=== PATIENT | male | born 1995 | race Two or more races ===

== ENCOUNTER 2024-01-21 08:06 | Emergency (ER) | payer OTHER, SELFPAY ==
--- NOTE | ~2024-01-21 | CT_ITS ---
EXAMINATION: CT ABDOMEN AND PELVIS WITHOUT CONTRAST CLINICAL INFORMATION: Left flank pain going into left testicle COMPARISON: None available. TECHNIQUE: Multidetector volumetric imaging was performed from the superior aspect of the liver through the pubic symphysis. Sagittal and coronal reformatted images were obtained on the technologist's workstation. This CT examination was performed using dose optimization techniques as appropriate, variously including the following: *Automated exposure control *Adjustment of mA and/or kV according to patient size (this includes techniques or standardized protocols for targeted exams where dose is matched to indication/reason for exam; i.e. extremities or head) *Use of iterative reconstruction technique DLP: 660 mGy-cm FINDINGS: LUNG BASES: No pneumothorax. No large pleural effusion. LIVER, GALLBLADDER, AND BILIARY TREE: Hepatic dome incompletely analyzed/not included in [id number]. The liver is normal in size, shape, and attenuation. No focal hepatic lesion or biliary ductal dilatation is present. The gallbladder is unremarkable with no evidence of radiopaque gallstones, gallbladder wall thickening, or obvious pericholecystic inflammatory changes. PANCREAS: Unremarkable. SPLEEN: Unremarkable. ADRENAL GLANDS: Unremarkable. KIDNEYS AND URETERS: Mild left-sided hydroureteronephrosis secondary to a 4 mm calculus along the left distal ureter just proximal to the ureterovesicular junction with slight periureteral stranding. No right-sided nephrolithiasis or hydronephrosis. BLADDER: Unremarkable. GASTROINTESTINAL TRACT: The small and large bowel are unremarkable. The appendix is unremarkable. ABDOMINAL WALL: Small fat filled umbilical hernia. LYMPH NODES: No enlarged lymph nodes per size criteria. VASCULAR: Aorta is nonaneurysmal. PELVIC VISCERA: Prostate measures 3.8 cm. OSSEOUS STRUCTURES: Unremarkable. CT/CT abdomen pelvis wo IV con IMPRESSION: Mild left-sided hydroureteronephrosis secondary to a 4 mm calculus along the left distal ureter just proximal to the ureterovesicular junction with slight periureteral stranding.
[2024-01-21 08:16] VITALS: BP 155/100; PULSE 55; RESP 18; TEMP 37; O2SAT 100; BMI 25.4
--- NOTE | 2024-01-21 08:33 | ED_ITS ---
HPI - Male Genitourinary General Chief complaint: Urogenital-Male Stated complaint: testicle pain / vomiting Time Seen by Provider: 01/21/24 08:33 Source: patient Mode of arrival: ambulatory Limitations: language barrier History of Present Illness ED Provider: Dr. Babb HPI Narrative: patient with sudden onset of left testicular pain with diaphoresis and vomiting, patient now feels his pain going into the back Complaint: testicle pain Onset (ago): hour(s) Duration: constant Location: left testicle Severity: severe Related Data Previous Rx's ?Medication ?Instructions ?Recorded cephalexin 500 mg capsule 500 mg PO Q6H 10 days #40 caps 01/21/24 naproxen 500 mg tablet (Naprosyn) 500 mg PO BID #20 tabs 01/21/24 tamsulosin 0.4 mg capsule (Flomax) 0.4 mg PO BEDTIME #30 caps 01/21/24 Allergies Allergy/AdvReac Type Severity Reaction Status Date / Time No Known Allergies Allergy Verified 01/21/24 08:34 Review of Systems 2 Review of Systems: Yes all other systems are reviewed and are negative Neurologic: Denies Sensory deficit (Neuro) [facility] Past Medical History Medical History No known health problems No known health problems Social History Social History Alcohol intake: current Alcohol intake frequency: a few times a week Smoked in Last 30 Days: Yes Use of substances other than those prescribed or required for medical reasons: No Any prior treatment program specific to substance use: No Advance Directives: No Advance Directives Information Provided: No Physical Exam 2 Vital Signs: Vital Signs: Last Vital Signs Temp 98.5 F 01/21/24 14:36 Pulse 56 01/21/24 14:36 Resp 16 01/21/24 14:36 BP 126/65 01/21/24 14:36 Pulse Ox 100 01/21/24 14:36 O2 Del Method Room Air 01/21/24 14:36 BMI result Body Mass Index 25.4 Const: Other: patient in pain, pale and diaphoretic Nutritional Appearance: average body habitus Orientation/consciousness: oriented to person and patient oriented x3 Limitations: no limitations HEENT: Head: Yes normal to inspection Ears: external ears normal General nose exam: Normal external nose present Mouth: Normal oral and palatal mucosa present and oropharynx normal Throat: Yes posterior oropharynx normal Eyes: General: appearance normal, both eyes and all related structures Neck: Other: supple Neck: Yes normal visual inspection Chest: Chest palpation & inspection: normal inspection of the chest Resp: Auscultation: clear to auscultation bilaterally Cardio: Jugular venous distension: no JVD Rate: regular rate Rhythm: r egular rhythm Heart sounds: S1 normal heart sound present and S2 normal heart sound present GI: Inspection: Yes normal to inspection Palpation (GI): Soft to palpation, nontender and No hepatosplenomegaly present Auscultation: normal bowel sounds : Other: Left CVAT, normal non swollen testicle, no redness, normal lie no pain Skin: General skin exam: no rashes or lesions noted Neuro: General: oriented to person and patient oriented x3 Cranial nerves: Yes CN's II-XII intact bilaterally Motor exam (neuro): 5/5 motor strength present throughout Sensory Exam: No Sensory deficit (Neuro) Extrem: General: Yes normal to inspection Psych: Appearance: grossly normal Course Reevaluation(s) Reevaluation #1: Patient feeling better will dc home, discussed with Dr. Jiménez as patient also has an infection Time: 15:16 Reevaluation #2: I spent 40 minutes of critical care, with interventions, assessments, speaking to patient, consultants, and family. Time: 15:16 Medications Administered Discontinued Medications Generic Name Dose Route Start Last Admin Trade Name Freq PRN Reason Stop Dose Admin Sodium Chloride 1,000 mls @ 999 mls/hr 01/21/24 08:45 01/21/24 10:31 Ns IVCONT 01/21/24 10:45 Infused .Q1H1M RENZO Infusion Ceftriaxone Sodium 1 gm/ 50 mls @ 100 mls/hr 01/21/24 11:45 01/21/24 12:41 Sodium Chloride IV 01/21/24 12:14 Infused ONCE ONE Infusion Ketorolac Tromethamine 30 mg 01/21/24 08:34 01/21/24 09:14 Ketorolac Tromethamine 30 Mg/Ml Vial IVPUSH 01/21/24 08:35 30 mg ONCE ONE Administration Ondansetron HCl 4 mg 01/21/24 08:34 01/21/24 09:14 Ondansetron Hcl 4 Mg/2 Ml Vial IVPUSH 01/21/24 08:35 4 mg ONCE ONE Administration Medical Decision Making Differential Diagnosis Differential Diagnoses: The differential diagnosis associated with the presentation includes (testicular torsion, renal colic, pyelonephritis, UTI) Admission/Observation Consideration of admission/observation: Escalation of care including admission/observation considered (upon arrival patient considered for admission) Consult Healthcare Provider Management of the patient was discussed with: W[employer] Sorter (Dr. Jiménez [facility]) Lab Data 01/21/24 12:07 01/21/24 12:07 Labs: Lab Results 01/21/24 01/21/24 Range/Units 10:37 12:07 WBC 13.0 H (4.8-10.8) X10*3/uL RBC 4.63 (4.60-5.80) X10*6/uL Hgb 14.6 (14.0-18.0) g/dl Hct 42.1 (42.0-52.0) % MCV 90.9 (80.0-98.0) fL MCH 31.5 (27.0-33.0) pg MCHC 34.7 (31.0-36.0) g/dl RDW 12.7 (11.0-16.0) % Plt Count 267 (160-400) X10*3/uL MPV 9.4 (9.4-12.4) fL Immature Gran % (Auto) 0.4 (0.0-0.4) % Neut % (Auto) 88.7 H (45-73) % Lymph % (Auto) 8.1 L (20-40) % [place] % (Auto) 2.5 (2-11) % Eos % (Auto) 0.0 (0-4) % Baso % (Auto) 0.3 (0-2) % Lymph # (Auto) 1.1 L (1.2-4.9) X10*3/uL [place] # (Auto) 0.3 (0.1-1.2) X10*3/uL Eos # (Auto) 0.0 (0.0-0.4) X10*3/uL Baso # (Auto) 0.0 (0.0-0.2) X10*3/uL Abs Immat Gran (auto) 0.05 H (0.00-0.03) X10*3/uL Absolute Neuts (auto) 11.6 H (2.0-8.3) x10*3/uL Absolute Nucleated RBC 0.000 (0.0-0.012) X10*3/uL Nucleated RBC % (auto) 0.0 (0.0-0.2) /100WBC Sodium 142 (135-145) mmol/L Potassium 4.5 (3.3-5.1) mmol/L Chloride 113 H (96-108) mmol/L Carbon Dioxide 25 (22-29) mmol/L Anion Gap 9 L (12-20) BUN 11 (9-16) mg/dL Creatinine 1.00 (0.5-1.4) mg/dL Estim Creat Clear Calc 111.9 Estimated GFR > 60 Random Glucose 103 (60-115) mg/dL Calcium 9.2 (8.4-10.2) mg/dL Urine Color Brown A Urine Appearance Turbid Urine pH 5.5 (5.0-9.0) Ur Specific Bel[place] >= 1.030 H (1.005-1.025) Urine Protein 100 (2+) H (Neg-Trace) mg/dL Urine Glucose (UA) Negative (Negative) mg/dL Urine Ketones Negative (Negative) mg/dL Urine Blood Large (3+) H (Negative) Urine Nitrite Positive H (Negative) Ur Leukocyte Esterase Small (1+) H (Negative) Urine RBC >20 H (0-2) /HPF Urine WBC 21-50 H (0-5) /HPF Ur Squamous Epith Cells 0-2 (0-2) /HPF Calcium Oxalate Crystal Present Urine Bacteria None Seen (None Seen) Hyaline Casts 3-5 (0-2) /LPF Independent Interpretation I performed an independent interpretation of an: CT Scan (abd: hydro on left with UVJ stone) Radiology Impression Discussion of test interpretation with radiology: I have reviewed the radiologist's reading. Discharge Plan Discharge Clinical Impression: Renal colic, Urinary tract infection, Hydronephrosis Patient Disposition: Home, Self-Care Instructions: Urinary Tract Infection in Men (ED), Renal Colic (ED), Hydronephrosis (ED) Prescriptions: New naproxen [Naprosyn] 500 mg tablet 500 mg PO BID Qty: 20 0RF tamsulosin [Flomax] 0.4 mg capsule 0.4 mg PO BEDTIME Qty: 30 0RF cephalexin 500 mg capsule 500 mg PO Q6H 10 Days Qty: 40 0RF Referrals: Elijah Jiménez MD [Physician] - 5 days Print Language: Indonesian
[2024-01-21] MEDS: 0.9 % Sodium Chloride 1,000 ML 999 ML IVCONT ×2 (09:14→09:16)
[2024-01-21] MEDS: Ketorolac Tromethamine 30 MG/ML VIAL IVPUSH (09:14)
[2024-01-21] MEDS: ondansetron HCL 4 MG/2 ML VIAL IVPUSH (09:14)
--- NOTE | 2024-01-21 09:17 | PC.NURSE ---
Pt brought to [facility] for treatment, assumed care of pt at this time. A&Ox3 skin ple warm and dry. Endorsing left testicular pain, and lower abd pain beginning around 0600 today. N/V, denies diarrhea. Denies urinary symptoms. Denies fever. IV access obtained, medicated per MAR, awaiting imaging, aware of plan of care.
[2024-01-21 11:03] LABS: Appearance Urine Turbid; Glucose Urine UA Negative (Negative); Leukocyte Esterase Urine Small (1+) (Negative); Nitrite Urine Positive (Negative); PH 5.5 (5.0-9.0); Specific Gravity - Urine >= 1.030 (1.005-1.025); UMIC TRIGGER UACC YES; Urine Blood Large (3+) (Negative); Urine Ketones Negative (Negative); Urine Protein 100 (2+) mg/dL (Neg-Trace)
[2024-01-21 11:04] LABS: Color Urine Brown
[2024-01-21 11:05] LABS: Bacteria Urine None Seen (None Seen); Calcium Oxalate Crystals Urine Present; RBC Urine >20 /HPF (0-2); Squamous Epithelial Cell Urine 0-2 /HPF (0-2); UACC Culture Trigger YES; WBC Urine 21-50 /HPF (0-5)
[2024-01-21 12:03] VITALS: BP 109/59; PULSE 56; RESP 16; TEMP 36.6; O2SAT 100
[2024-01-21] MEDS: cefTRIAXone sodium 1 GM in 0.9 % Sodium Chloride 50 ML IV (12:09)
[2024-01-21 12:14] LABS: MANUAL DIFF FLAG NO
[2024-01-21 12:17] LABS: Basophils Percent Auto 0.3 % (0-2); Hematocrit 42.1 % (42.0-52.0); Hemoglobin 14.6 g/dl (14.0-18.0); Imm Gran Abs Auto 0.05 X10*3/uL (0.00-0.03); Imm Gran Pct Auto 0.4 % (0.0-0.4); Lymphocytes Absolute Auto 1.1 X10*3/uL (1.2-4.9); Lymphocytes Percent Auto 8.1 % (20-40); Mean Corpuscular HGB Conc 34.7 g/dl (31.0-36.0); Mean Corpuscular Hemoglobin 31.5 pg (27.0-33.0); Mean Corpuscular Volume 90.9 fL (80.0-98.0); Mean Platelet Volume 9.4 fL (9.4-12.4); Monocytes Absolute Auto 0.3 X10*3/uL (0.1-1.2); Monocytes Percent Auto 2.5 % (2-11); Neutrophils Absolute Auto 11.6 x10*3/uL (2.0-8.3); Neutrophils Percent Auto 88.7 % (45-73); Platelet Count 267 X10*3/uL (160-400); Red Blood Count 4.63 X10*6/uL (4.60-5.80); Red Cell Distribution Width 12.7 % (11.0-16.0)
[2024-01-21 12:27] LABS: Anion Gap 9 (12-20); Blood Urea Nitrogen 11 mg/dL (9-16); Calcium 9.2 mg/dL (8.4-10.2); Carbon Dioxide 25 mmol/L (22-29); Chloride 113 mmol/L (96-108); Creatinine Clr Calc Pharmacy 111.9; Estimated Glomerular Filt Rate > 60; Glucose Random 103 mg/dL (60-115); Potassium 4.5 mmol/L (3.3-5.1); Sodium 142 mmol/L (135-145)
[2024-01-21 14:36] VITALS: BP 126/65; PULSE 56; RESP 16; TEMP 36.9; O2SAT 100
[2024-01-21 17:09] VITALS: BP 125/65; PULSE 65; RESP 16; TEMP 36.9; O2SAT 100
== END 2024-01-21 17:10 | disposition home or self-care (01) ==
PROVIDERS: Emergency Provider Emergency Medicine
DX: N23 Unspecified renal colic (principal); N39.0 Urinary tract infection, site not specified; N13.30 Unspecified hydronephrosis; R61 Generalized hyperhidrosis; R11.10 Vomiting, unspecified
CPT/HCPCS: 36415; 74176; 80048; 81001; 81003; 85025; 87086; 96361; 96365; 96375; 99284; 99285; J0696; J1885; J2405